=== PATIENT | male | born 1980 | race Caucasian/White ===

== ENCOUNTER 2017-03-13 05:28 | Inpatient (IN) | payer BC, OTHER ==
[2017-02-14 11:34] VITALS: BMI 37.0
--- NOTE | 2017-02-14 12:04 | PAT Medication Instructions ---
Service Date Feb 14, 2017. Current Home Medication List Albuterol Hfa (Ventolin Hfa), 2 PUFFS INH QID PRN for Shortness of Breath Albuterol Sulf (Proventil 0.083% 2.5MG/3ML), 2.5 MG INH QID PRN for Shortness of Breath Atorvastatin (Lipitor), 1 TAB PO QAM Beclomethasone Dip (Qvar), 2 PUFFS INH BID PRN for SOB/Wheezing Budesonide/Formoterol Fumarate (Symbicort 160/4.5 Inhaler ), 2 PUFFS INH BID PRN for Shortness of Breath Cetirizine (Zyrtec), 10 MG PO QAM Citalopram (Citalopram Hydrobromide), 20 MG PO QAM Duloxetine HCl (Cymbalta), 1 CAP PO QAM Levothyroxine Sodium (Levothyroxine Sodium), 1 TAB PO QAM Losartan Potassium (Cozaar), 25 MG PO QAM Metformin Hcl (Glucophage), 1,000 MG PO BID Omeprazole (Prilosec), 20 MG PO QAM Medication Instructions For Your Scheduled Surgery - Hold the following medications 48 hours prior to surgery: Metformin Hcl (Glucophage), 1,000 MG PO BID - Hold the following medications the morning of surgery: Losartan Potassium (Cozaar), 25 MG PO QAM Cetirizine (Zyrtec), 10 MG PO QAM - Take the following medications the morning of surgery with a sip of water: Omeprazole (Prilosec), 20 MG PO QAM Duloxetine HCl (Cymbalta), 1 CAP PO QAM Atorvastatin (Lipitor), 1 TAB PO QAM Levothyroxine Sodium (Levothyroxine Sodium), 1 TAB PO QAM Citalopram (Citalopram Hydrobromide), 20 MG PO QAM Budesonide/Formoterol Fumarate (Symbicort 160/4.5 Inhaler ), 2 PUFFS INH BID PRN for Shortness of Breath Beclomethasone Dip (Qvar), 2 PUFFS INH BID PRN for SOB/Wheezing Albuterol Sulf (Proventil 0.083% 2.5MG/3ML), 2.5 MG INH QID PRN for Shortness of Breath (if needed) Albuterol Hfa (Ventolin Hfa), 2 PUFFS INH QID PRN for Shortness of Breath ( can use if needed/ bring with you to hospital on day of surgery) - Take the following medications as scheduled the night before surgery: Budesonide/Formoterol Fumarate (Symbicort 160/4.5 Inhaler ), 2 PUFFS INH BID PRN for Shortness of Breath Beclomethasone Dip (Qvar), 2 PUFFS INH BID PRN for SOB/Wheezing Albuterol Sulf (Proventil 0.083% 2.5MG/3ML), 2.5 MG INH QID PRN for Shortness of Breath Albuterol Hfa (Ventolin Hfa), 2 PUFFS INH QID PRN for Shortness of Breath If you have any questions please call us at [phone] or [phone] ( [facility]) or [phone]
[2017-02-14 12:34] LABS: BASO % 0.4 %; BASO ABS # 0.03 K/uL (0-0.2); COMPLETE YES; EOS % 8.3 %; HEMATOCRIT 42.1 % (42-52); IG% 0.3 %; LYMPH % 36.4 %; LYMPH ABS # 2.89 K/uL (1.2-3.4); MEAN CELL VOLUME 91.7 fL (80-100); MEAN CORPUSCULAR HEMOGLOBIN 31.4 pg (25-34); MEAN CORPUSCULAR HGB CONC 34.2 g/dl (32-36); MEAN PLATELET VOLUME 9.2 fL (7.4-10.4); MONO % 10.7 %; NEUT % 43.9 %; PLATELET COUNT 274 K/uL (130-400); RED BLOOD COUNT 4.59 M/uL (4.7-6.1); WHITE BLOOD COUNT 7.95 K/uL (4.8-10.8)
[2017-02-14 13:42] LABS: BUN/CREATININE RATIO 10.6 (10-20); CALCIUM 9.1 mg/dl (8.5-10.1); CREATININE 0.9 mg/dl (0.60-1.40); POTASSIUM 3.9 mmol/L (3.5-5.1)
[2017-02-14 13:56] LABS: BETA-HYDROXYBUTYRATE 1.06 mg/dL (0.2-2.81)
--- NOTE | 2017-03-12 17:46 | HISTORY & PHYSICAL EXAMINATION ---
DATE OF ADMISSION: 03/13/2017 CHIEF COMPLAINT: Back pain, buttock pain, lower extremity difficulty, pain with flexion and extension and pain with doing normal everyday activities. HISTORY OF PRESENT ILLNESS: Romero is a delightful gentleman. He has ongoing difficulty for multiple months in duration and worsening over time, failure of conservative measures. He is here for a posterior lumbar interbody fusion at L5-S1. PAST MEDICAL HISTORY: Positive for the low back pain, sciatica, obesity, acid reflux, asthma, sleep apnea, diabetes mellitus. No hypertension, COPD, or carcinoma. SOCIAL HISTORY: Nonsmoker, non-ET[employer] user. PAST SURGICAL HISTORY: Negative. ALLERGIES: Negative. MEDICATIONS: Metformin, Zyrtec, Cymbalta, levothyroxine, Prilosec, fish oil and Celexa. REVIEW OF SYSTEMS: Denies blurred vision, double vision, tinnitus or vertigo. Denies chest pain, orthopnea, shortness of breath, palpitations, nausea, vomiting, urgency, frequency, and dysuria. All negative. Major complaint is of musculoskeletal back and lower extremity difficulty, and sciatica. OBJECTIVE: GENERAL: He is 5 feet 7 inches, 240 pounds, in distress. VITAL SIGNS: Blood pressure 140/80, pulse of 80, respiratory rate 16, temperature 97.4. HEENT: Pupils react to light and accommodation. Ear, nose and throat clear. CARDIAC: Normal S1, S2, no S3. LUNGS: Clear to auscultation. ABDOMEN: Soft, nontender, no masses. NEUROLOGIC: Intact, 5/5 strength, good sensation. He does have pain with straight leg raising on the right. He has pain with flexion, extension, pain with side bending as well. Difficulty with slight gait abnormality and difficulty coming to an upright position. IMAGES: Demonstrate degenerative changes and disk herniations at L5-S1. ASSESSMENT: L5-S1 degenerative issue along with a herniation. DISPOSITION: Includes a posterior lumbar interbody fusion at [facility] on March 13. [facility]
[~2017-03-13] VITALS: Ht 172.7 cm; Wt 110.7 kg
[2017-03-13] VITALS (9 sets, daily range): BP systolic 92–144; BP diastolic 51–80; PULSE 71–97; TEMP 36.5–37.3; O2SAT 92–98; BMI 37.0; BMI 37.1
[~2017-03-13 05:28] MED LIST: ALBINS/ INH; ATOR-22 PO; CEFAZOLIN 2000 MG/60 ML D5W 60 ML IV SCH; CETI10TA84 PO; CLX/20 PO; CYM/30 PO; LACTATED RINGER'S 1000ML IV SCH; LEVO50TA6 PO; LOSA1TAB PO; METF-384 PO; NSS 1000ML IV SCH; PRLSR20 PO; QVRINH80 INH; SYMIN160 INH; VNTHFA/IN INH
[2017-03-13] MEDS ORDERED: LACTATED RINGER'S 1000ML 1,000 ML IV SCH (06:00)
[2017-03-13] MEDS ORDERED: NSS 1000ML IV SCH (06:00)
[2017-03-13] MEDS ORDERED: CEFAZOLIN 2000 MG/60 ML D5W 60 ML IV SCH (06:00)
[2017-03-13] MEDS ORDERED: MIDAZOLAM HCL 1 MG/ML 2ML VIAL ONE (06:40)
[2017-03-13] MEDS ORDERED: FENTANYL CITRATE INJ 50 MCG/1 ML 2 ML VIAL ONE (06:40)
[2017-03-13] MEDS ORDERED: GELATIN SPONGE SZ 100 ONE (07:04)
[2017-03-13] MEDS ORDERED: BUPIVACAINE/EPINEPHRINE 0.5% MPF 1:200,000 30 ML VIAL ONE (07:04)
[2017-03-13] MEDS ORDERED: THROMBIN FOR SOLN 20000 UNIT KIT ONE (07:04)
[2017-03-13] MEDS ORDERED: BACITRACIN 50000 UNIT VIAL ONE (07:05)
[2017-03-13] MEDS ORDERED: VANCOMYCIN HCL 1000MG/20ML VIAL ONE (07:05)
--- NOTE | 2017-03-13 07:12 | History & Physical Bridge Note ---
H&P Re-Evaluation Bridge Note: I have examined the patient, reviewed the History & Physical and in the interval since the performance of the History & Physical I have noted the following changes of clinical significance: No changes noted
[2017-03-13] MEDS ORDERED: ONDANSETRON INJ 2 MG/ML 2 ML VIAL IV PRN ×2 (07:15→10:30)
[2017-03-13] MEDS ORDERED: EpHEDrine SULFATE INJ 50 MG/ML AMP IV PRN (07:15)
[2017-03-13] MEDS ORDERED: ATROPINE SULFATE 0.1 MG/ML 5ML SYR IV PRN (07:15)
[2017-03-13] MEDS ORDERED: HYDROmorphone INJ 2 MG/ML SYR/VIAL ONE ×2 (07:49→08:20)
[2017-03-13] MEDS ORDERED: DEXAMETHASONE SOD INJ 4 MG/ML VIAL ONE (08:52)
[2017-03-13] MEDS ORDERED: PROPOFOL IV EMULSION 10 MG/ML 20 ML VIAL IV ONE (08:53)
[2017-03-13] MEDS ORDERED: LIDOCAINE HCL 2% 2 ML VIAL (20MG/ML) ONE (08:53)
[2017-03-13] MEDS ORDERED: ROCURONIUM BROMIDE 10 MG/ML 5 ML VIAL ONE ×4 (09:11→09:12)
--- NOTE | 2017-03-13 09:55 | DIAGNOSTIC IMAGING REPORT ---
LUMBAR SPINE, INTRAOPERATIVE FLUOROSCOPY HISTORY: L5-S1 decompression and fusion. FLUOROSCOPY TIME: 8 seconds. FINDINGS: Intraoperative fluoroscopy was provided for the lumbar spine. A single fluoroscopic spot image demonstrates posterior decompression and fusion at L5-S1 with pedicle screws and rods. IMPRESSION: Fluoroscopy provided for a L5-S1 posterior decompression and fusion. Electronically signed by: Ayad Rodriguez M.D. 03/13/2017 9:54 AM Dictated Date/Time: 03/13/2017 9:54 AM
[2017-03-13] MEDS ORDERED: NEOSTIGMINE METHYLSULFATE 5 MG/5 ML SYR ONE (09:57)
[2017-03-13] MEDS ORDERED: GLYCOPYRROLATE INJ 0.2 MG/ML VIAL ONE (09:57)
[2017-03-13] MEDS ORDERED: ONDANSETRON INJ 2 MG/ML 2 ML VIAL ONE (09:57)
[2017-03-13] MEDS ORDERED: SODIUM CHLORIDE 0.9% 1000ML 1,000 ML IV SCH (10:21)
--- NOTE | 2017-03-13 10:23 | [facility] Post Operative Brief Note ---
Immediate Operative Summary Operative Date March 13, 2017. Pre-Operative Diagnosis L5-S1 Disc Herniation; Instability L5-1 Post-Operative Diagnosis L5-S1 Disc Herniation Procedure(s) Performed L5-S1 Posterior Lumbar Interbody Fusion Surgeon Dr. Mays Heel Emery Buffer Surgeon(s) MADISON Snider Estimated Blood Loss 200 cc Findings instability L5-S1 Specimens none per surgeon Complication(s) None Disposition Recovery Room / PACU
[2017-03-13] MEDS ORDERED: LORAZEPAM 1 MG TAB PO PRN (10:30)
[2017-03-13] MEDS ORDERED: METOCLOPRAMIDE HCL INJ 5 MG/ML 2 ML VIAL IV PRN (10:30)
[2017-03-13] MEDS ORDERED: ALBUTEROL 0.083% NEBU SOLN 3 ML VIAL INH PRN (10:30)
[2017-03-13] MEDS ORDERED: BECLOMETHASONE DIP HFA 80 MCG 8.7G INH INH PRN (10:30)
[2017-03-13] MEDS ORDERED: ACETAMINOPHEN 325 MG TAB PO PRN (10:30)
[2017-03-13] MEDS ORDERED: NALOXONE HCL 0.4 MG/1 ML VIAL/CARP IV PRN (10:30)
[2017-03-13] MEDS ORDERED: MAGNESIUM HYDROXIDE SUSP 30 ML UDC PO PRN (10:30)
[2017-03-13] MEDS ORDERED: LORAZEPAM INJ 1 MG in SYRINGE 0 ML IV PRN (10:30)
[2017-03-13] MEDS ORDERED: BUDESONIDE/FORMOTEROL FUMARATE 160/4.5 60 PUFFS/INHALER INH PRN (10:30)
[2017-03-13] MEDS ORDERED: ALBUTEROL HFA 8 GM INHALER INH PRN (10:30)
[2017-03-13] MEDS ORDERED: PROMETHAZINE HCL INJ 12.5 MG in SODIUM CHLORIDE 0.9% 50ML 50 ML IV PRN (10:30)
[2017-03-13] MEDS ORDERED: HYDROmorphone HCL 0.5MG/ML 50 ML CASSETTE ONE (10:42)
[2017-03-13] MEDS: FENTANYL CITRATE INJ 50 MCG/1 ML 2 ML VIAL IV PRN ×4 (10:50→11:10)
[2017-03-13] MEDS: MoRPHine SULFATE 10 MG/ML CARP/VIAL IV PRN ×4 (11:15→11:30)
--- NOTE | 2017-03-13 11:46 | OPERATIVE REPORT ---
DATE OF OPERATION: 03/13/2017 PREOPERATIVE DIAGNOSES: Instability and herniation, L5-S1. POSTOPERATIVE DIAGNOSES: Same. PROCEDURE: Include a posterior lumbar interbody fusion and diskectomy L5-S1. SURGEON: Dr. Mays. HEALTH ECONOMIST: Giuliano Velásquez. COMPLICATIONS: Zero. BLOOD LOSS: 150-200 mL. DESCRIPTION OF PROCEDURE: The patient was taken to the operating room, a general intubated anesthetic provided to the patient, placed prone, prepped and draped sterile. He was shaved first, scrubbed with DuraPrep and prepped with ChloraPrep. We draped him sterile and he was comfortably placed. I made a skin incision, fascial incision. He was an obese individual, was 4-5 inches just to the facet joints. We dissected this free. We meticulously dissected the lamina L5, foraminotomies, and partial facetectomies bilaterally. I safely was able to get pedicle screws on L5 and S1 bilaterally. We safely got a posterior lumbar interbody device by the [employer], it measured 26 mm in length, 9 mm in height and 10 mm across. The screws were all 6.5 mm x 40 mm by the [employer]. We were very pleased with the anatomical adventism. We irrigated thoroughly. We bone grafted out over this transverse processes to complete the 360 fusion. We closed over a drain with 1 Vicryl, 2-0 and staple gun. Sterile dressings applied. The patient returned to PACU stable. No apparent complications. I attest to the content of the Intraoperative Record and any orders documented therein. Any exceptio ns are noted below.
[2017-03-13 11:47] LABS: HEMATOCRIT 41.2 % (42-52)
[2017-03-13] MEDS ORDERED: EpHEDrine SULFATE 50MG/5ML SYR ONE (11:57)
[2017-03-13] MEDS: HYDROmorphone HCL 0.5MG/ML 50 ML CASSETTE IV PRN ×4 (12:03→23:09)
--- NOTE | 2017-03-13 12:17 | Anesthesiology Progress Note ---
Anesthesia Post Op Note Date & Time March 13, 2017 at 12:17 Vital Signs Pain Intensity: 5 Vital Signs Past 12 Hours Date Time Temp Pulse Resp B/P Pulse Ox O2 Delivery O2 Flow Rate FiO2 03/13/17 11:52 91 9 03/13/17 11:52 91 9 92 03/13/17 11:51 144/75 03/13/17 11:47 98 20 94 03/13/17 11:47 95 20 03/13/17 11:46 126/73 03/13/17 11:45 37.0 97 18 144/75 95 Nasal Cannula 4 03/13/17 11:42 97 7 95 03/13/17 11:42 97 7 03/13/17 11:41 137/67 03/13/17 11:37 89 7 86 03/13/17 11:37 85 7 03/13/17 11:36 121/89 03/13/17 11:35 97 12 03/13/17 11:35 98 12 95 03/13/17 11:31 127/64 03/13/17 11:30 96 11 03/13/17 11:30 96 11 95 03/13/17 11:26 150/83 03/13/17 11:25 92 10 92 03/13/17 11:25 91 10 03/13/17 11:21 119/77 03/13/17 11:20 100 17 03/13/17 11:20 99 17 94 03/13/17 11:16 123/75 03/13/17 11:15 98 32 03/13/17 11:15 97 32 93 03/13/17 11:11 102/66 03/13/17 11:10 99 12 03/13/17 11:10 98 12 95 03/13/17 11:05 97 13 138/92 94 03/13/17 11:05 98 13 03/13/17 11:01 130/70 03/13/17 11:00 89 15 94 03/13/17 11:00 89 15 03/13/17 10:55 82 16 03/13/17 10:55 83 16 140/78 97 03/13/17 10:51 121/89 03/13/17 10:50 88 11 98 03/13/17 10:50 88 11 03/13/17 10:46 142/53 03/13/17 10:45 89 12 03/13/17 10:45 89 12 98 03/13/17 10:41 146/85 03/13/17 10:40 81 15 98 03/13/17 10:40 82 15 03/13/17 10:36 153/86 03/13/17 10:35 78 12 03/13/17 10:35 78 12 97 03/13/17 10:31 154/87 03/13/17 10:30 81 14 97 03/13/17 10:30 81 14 03/13/17 10:26 143/87 03/13/17 10:25 86 18 98 03/13/17 10:25 36.6 81 14 143/87 97 Mask 10 03/13/17 10:25 86 18 03/13/17 05:42 36.7 71 18 130/78 96 Room Air Notes Mental Status: alert / awake / arousable, participated in evaluation Pt Amnestic to Procedure: Yes Nausea / Vomiting: adequately controlled Pain: adequately controlled Airway Patency, RR, SpO2: stable & adequate BP & HR: stable & adequate Hydration State: stable & adequate Anesthetic Complications: no major complications apparent
[2017-03-13] MEDS: SODIUM CHLORIDE 0.9% 1000ML 1,000 ML IV SCH ×2 (13:16→22:34)
[2017-03-13] MEDS: CEFAZOLIN IV 2,000 MG in DEXTROSE 5% 50ML 50 ML IV SCH ×2 (15:51→23:52)
[2017-03-13] MEDS: DEXAMETHASONE INJ 10 MG in SYRINGE 0 ML IV SCH ×2 (16:04→23:52)
[2017-03-13] MEDS ORDERED: NURSING VERBAL MED ORDER ONE (16:30)
[2017-03-13] MEDS: KETOROLAC TROMETHAMINE 30 MG/ML VIAL IV. SCH ×2 (17:44→23:52)
[2017-03-13] MEDS ORDERED: METFORMIN HCL 500 MG TAB PO SCH (17:45)
[2017-03-13] MEDS ORDERED: DEXTROSE 50% 50 ML SYR IV PRN (18:45)
[2017-03-13] MEDS ORDERED: GLUCAGON FOR INJ 1 MG VIAL SQ PRN (18:45)
[2017-03-13] MEDS ORDERED: GLUCOSE 10 TABS/TUBE PO PRN (18:45)
[2017-03-13] MEDS ORDERED: GLUCOSE 40% GEL 15 GM TUBE PO PRN (18:45)
--- NOTE | 2017-03-13 19:31 | Medical Consult ---
Consultation Date of Consultation: March 13, 2017. Attending Physician: Ambrose Mays DO Reason for Consultation: medical management History of Present Illness Patient seen and examined after undergoing lumbar fusion today by Dr. Mays. Patient states back pain is 6/10. He did receive pain medication which helped. He tolerated dinner. Has voided after surgery without issues. Last BM was 3 days ago. Denies fever, chills, dizziness, cough, SOB, chest pain, N/V/D, dysuria, calf pain, edema, numbness, weakness. Denies hx of VTE. States blood sugars run 180 at home on metformin 1000 mg BID. Past Medical/Surgical History Medical Problems: (1) Asthma Status: Chronic (2) Depression Status: Chronic (3) DM type 2 (diabetes mellitus, type 2) Status: Chronic (4) GERD (gastroesophageal reflux disease) Status: Chronic (5) Hepatitis C, chronic Status: Chronic (6) Hyperlipidemia Status: Chronic (7) Hypothyroidism Status: Chronic Surgical Problems: (1) H/O wisdom tooth extraction Status: Chronic (2) S/P tympanostomy tube placement Status: Chronic Family History Diabetes mellitus MOTHER Social History Smoking Status: Never Smoker Alcohol Use: occasionally Marital Status: Housing Status: lives with family Allergies Coded Allergies: No Known Allergies (Unverified , 03/13/17) Home Medications Active Reported Glucophage (Metformin Hcl) 1,000 Mg Tab 1,000 Mg PO BID Cozaar (Losartan Potassium) 25 Mg Tab 25 Mg PO QAM Zyrtec (Cetirizine HCl) 10 Mg Tab 10 Mg PO QAM Proventil 0.083% 2.5MG/3ML (Albuterol Sulf) 2.5 Mg/3 Ml Nebu 2.5 Mg INH QID PRN Ventolin Hfa (Albuterol) 200 Puffs/59609 Mcg Aers 2 Puffs INH QID PRN Qvar (Beclomethasone Dip) 80 Mcg/Act Aer 2 Puffs INH BID PRN Symbicort 160/4.5 Inhaler (Budesonide/Formoterol Fumarate) Aero 2 Puffs INH BID PRN Cymbalta (Duloxetine HCl) 30 Mg Cap 1 Cap PO QAM 30 Days Levothyroxine Sodium 50 Mcg Tab 1 Tab PO QAM 30 Days Lipitor (Atorvastatin Calcium) 20 Mg Tab 1 Tab PO QAM 30 Days Prilosec (Omeprazole) 20 Mg Capcr 20 Mg PO QAM Citalopram Hydrobromide (Citalopram) 20 Mg Tab 20 Mg PO QAM Current Inpatient Medications Current Inpatient Medications Medications (Trade) Dose Ordered Sig/Calrke Route Start Time Stop Time Status Last Admin Dose Admin Sodium Chloride (Nss 1000ml) 1,000 ml @ 15 mls/hr Q24H IV 03/13/17 06:00 03/14/17 05:59 Diphenhydramine HCl (Benadryl Cap) 25 mg Q6H PRN PO 03/13/17 10:30 04/12/17 10:29 Magnesium Hydroxide (Milk Of Magnesia Susp) 30 ml DAILY PRN PO 03/13/17 10:30 04/12/17 10:29 Bisacodyl (Dulcolax Supp) 10 mg DAILY PRN LA 03/14/17 06:00 04/13/17 05:59 Bisacodyl (Dulcolax Tab) 5 mg DAILY PRN PO 03/14/17 06:00 04/13/17 05:59 Polyethylene 17 gm 17 gm DAILY PO 03/14/17 09:00 04/13/17 08:59 Lorazepam/Syringe (Ativan Inj/ Syringe) 0.5 ml @ 1 mls/min Q6H PRN IV 03/13/17 10:30 04/12/17 10:29 Lorazepam (Ativan Tab) 1 mg Q6H PRN PO 03/13/17 10:30 04/12/17 10:29 Metoclopramide HCl (Reglan Inj) 10 mg Q6H PRN IV 03/13/17 10:30 04/12/17 10:29 Ondansetron HCl 4 mg 4 mg Q6H PRN IV 03/13/17 10:30 04/12/17 10:29 Promethazine HCl/ Sodium Chloride (Phenergan Inj/ Nss 50ml) 50.5 ml @ 202 mls/hr Q6H PRN IV 03/13/17 10:30 04/12/17 10:29 Ketorolac Tromethamine (Toradol Inj) 30 mg Q6 IV. 03/13/17 18:00 03/14/17 18:01 03/13/17 17:44 30 MG Oxycodone/ Acetaminophen (Percocet 5-325mg Tab) 2 tab Q4H PRN PO 03/14/17 08:00 03/28/17 07:59 Hydromorphone HCl (Dilaudid Inj) 1 mg Q3H PRN IV 03/14/17 08:00 03/28/17 07:59 Oxycodone/ Acetaminophen (Percocet 5-325mg Tab) 1 tab Q4H PRN PO 03/14/17 08:00 03/28/17 07:59 Acetaminophen 650 mg 650 mg Q6H PRN PO 03/13/17 10:30 04/12/17 10:29 Cefazolin Sodium 2000 mg/Dextrose 60 ml @ 100 mls/hr Q8H IV 03/13/17 16:00 03/14/17 08:35 03/13/17 15:51 100 MLS/HR Dexamethasone Sodium Phosphate 10 mg/Syringe 2.5 ml @ 1 mls/min Q8H IV 03/13/17 16:00 03/15/17 00:03 03/13/17 16:04 1 MLS/MIN Sodium Chloride (Nss 1000ml) 1,000 ml @ 80 mls/hr [id number] IV 03/13/17 10:21 04/12/17 10:20 03/13/17 13:16 80 MLS/HR Albuterol (Ventolin Hfa Inhaler) 2 puffs QID PRN INH 03/13/17 10:30 04/12/17 10:29 Albuterol Sulfate (Ventolin 0.083% 2.5MG/3ML Neb) 2.5 mg QID PRN INH 03/13/17 10:30 04/12/17 10:29 Atorvastatin Calcium (Lipitor Tab) 20 mg QAM PO 03/14/17 09:00 04/13/17 08:59 Beclomethasone Dipropionate (Qvar 80 Mcg Hfa Inhaler) 2 puffs BID PRN INH 03/13/17 10:30 04/12/17 10:29 Budesonide/ Formoterol Fumarate (Symbicort 160/ 4.5 Inh) 2 puffs BID PRN INH 03/13/17 10:30 04/12/17 10:29 Cetirizine HCl (zyrTEC TAB) 10 mg QAM PO 03/14/17 09:00 04/13/17 08:59 Citalopram Hydrobromide (celeXA TAB) 20 mg QAM PO 03/14/17 09:00 04/13/17 08:59 Duloxetine HCl (Cymbalta Cap) 30 mg QAM PO 03/14/17 09:00 04/13/17 08:59 Levothyroxine Sodium (Synthroid Tab) 50 mcg DAILYBB PO 03/14/17 06:00 04/13/17 05:59 Losartan Potassium (coZAAR TAB) 25 mg QAM PO 03/14/17 09:00 04/13/17 08:59 Pantoprazole Sodium (Protonix Tab) 40 mg QAM PO 03/14/17 09:00 04/13/17 08:59 Naloxone HCl (Narcan Inj) 0.1 mg Q5M PRN IV 03/13/17 10:30 03/14/17 08:00 Hydromorphone HCl 25 mg 25 mg PRN PRN IV 03/13/17 10:30 03/14/17 08:00 03/13/17 16:36 25 MG Sodium Chloride (Nss 1000ml) 1,000 ml @ 15 mls/hr Q24H IV 03/13/17 10:21 03/14/17 08:00 Miscellaneous Information (Discontinue COMMERCIAL OR INSTITUTIONAL CLEANER) 1 ea TODAY@0800 N/A 03/14/17 08:00 03/14/17 10:00 Hydromorphone HCl (Dilaudid Inj) 1.5 mg Q3H PRN IV 03/14/17 08:00 03/28/17 07:59 Insulin Aspart (novoLOG ASPART) SLIDING SCALE If C... ACHS SC 03/13/17 21:00 04/12/17 20:59 Glucose (Glucose 40% Gel) 15-30 GRAMS 15 GRAMS... UD PRN PO 03/13/17 18:45 04/12/17 18:44 Glucose (Glucose Chew Tab) 4-8 Tablets 4 Tabl... UD PRN PO 03/13/17 18:45 04/12/17 18:44 Dextrose (Dextrose 50% 50ML Syringe) 25-50ML OF 50% DW IV FOR... UD PRN IV 03/13/17 18:45 04/12/17 18:44 Glucagon (Glucagon Inj) 1 mg UD PRN SQ 03/13/17 18:45 04/12/17 18:44 Review of Systems Ten systems reviewed and negative except as noted in HPI. Physical Exam Date Time Temp Pulse Resp B/P Pulse Ox O2 Delivery O2 Flow Rate FiO2 03/13/17 15:30 95 Nasal Cannula 2.0 03/13/17 15:05 36.9 85 16 139/75 98 Nasal Cannula 4.0 03/13/17 14:05 36.5 97 20 126/80 97 Nasal Cannula 4.0 03/13/17 13:03 96 20 131/71 98 Nasal Cannula 4.0 03/13/17 12:38 97 Nasal Cannula 4.0 03/13/17 12:35 37.3 92 18 144/79 97 Nasal Cannula 4.0 03/13/17 12:35 78 20 129/69 95 Nasal Cannula 4.0 03/13/17 12:33 97 Nasal Cannula 4.0 03/13/17 11:52 91 9 03/13/17 11:52 91 9 92 03/13/17 11:51 144/75 03/13/17 11:47 98 20 94 03/13/17 11:47 95 20 03/13/17 11:46 126/73 03/13/17 11:45 37.0 97 18 144/75 95 Nasal Cannula 4 03/13/17 11:42 97 7 95 03/13/17 11:42 97 7 03/13/17 11:41 137/67 03/13/17 11:37 89 7 86 03/13/17 11:37 85 7 03/13/17 11:36 121/89 03/13/17 11:35 97 12 03/13/17 11:35 98 12 95 03/13/17 11:31 127/64 03/13/17 11:30 96 11 03/13/17 11:30 96 11 95 03/13/17 11:26 150/83 03/13/17 11:25 92 10 92 03/13/17 11:25 91 10 03/13/17 11:21 119/77 03/13/17 11:20 100 17 03/13/17 11:20 99 17 94 03/13/17 11:16 123/75 03/13/17 11:15 98 32 03/13/17 11:15 97 32 93 03/13/17 11:11 102/66 03/13/17 11:10 99 12 03/13/17 11:10 98 12 95 03/13/17 11:05 97 13 138/92 94 03/13/17 11:05 98 13 03/13/17 11:01 130/70 03/13/17 11:00 89 15 94 03/13/17 11:00 89 15 03/13/17 10:55 82 16 03/13/17 10:55 83 16 140/78 97 03/13/17 10:51 121/89 03/13/17 10:50 88 11 98 03/13/17 10:50 88 11 03/13/17 10:46 142/53 03/13/17 10:45 89 12 03/13/17 10:45 89 12 98 03/13/17 10:41 146/85 03/13/17 10:40 81 15 98 03/13/17 10:40 82 15 03/13/17 10:36 153/86 03/13/17 10:35 78 12 03/13/17 10:35 78 12 97 03/13/17 10:31 154/87 03/13/17 10:30 81 14 97 03/13/17 10:30 81 14 03/13/17 10:26 143/87 03/13/17 10:25 86 18 98 03/13/17 10:25 36.6 81 14 143/87 97 Mask 10 03/13/17 10:25 86 18 03/13/17 05:42 36.7 71 18 130/78 96 Room Air General Appearance: WD/WN, no apparent distress Head: normocephalic, atraumatic Eyes: normal inspection, sclerae normal ENT: hearing grossly normal Neck: supple, trachea midline Respiratory/Chest: lungs clear, normal breath sounds Cardiovascular: regular rate, rhythm, no murmur Abdomen/GI: normal bowel sounds, non tender, soft Back: + pertinent finding (s/p lumbar fusion. drain in place with sanguinous drainage. ) Extremities/Musculoskelatal: no calf tenderness, no pedal edema, + pertinent finding (SCDs in place) Neurologic/Psych: alert, normal mood/affect, oriented x 3, + pertinent finding (ankle flexion/ extension 5/5 bilaterally. sensation to light touch intact bilateral feet. ) Skin: normal color, warm/dry Laboratory Results Last 24 Hours Test 03/13/17 05:49 03/13/17 10:31 03/13/17 11:21 03/13/17 12:06 Bedside Glucose 285 mg/dl 241 mg/dl 247 mg/dl Hemoglobin 14.1 g/dL Hematocrit 41.2 % Test 03/13/17 18:32 Bedside Glucose 214 mg/dl Assessment & Plan S/P LUMBAR SPINAL FUSION POD #[address] Mays Pain control, activity, and wound care as per ortho Current bowel regimen includes Miralax daily- will add Colace BID Monitor daily H/H for sign of acute blood loss anemia Continue incentive spirometry PT/OT DM TYPE 2 BSG's in 200s Hold metformin during hospitalization Insulin sliding scale coverage Monitor for rising BSG while on IV steroids ASTHMA Not in exacerbation Continue home inhalers HYPOTHYROIDISM Continue levothyroxine DYSLIPIDEMIA Continue statin DEPRESSION Continue home medications GERD Continue PPI DVT PROPHYLAXIS Per ortho DISPOSITION Per ortho Patient seen in collaboration with Dr. Encinas. Please see her addendum. I have seen and evaluated the patient and discussed the case with the provider above. I agree with the assessment and plan as stated. Huang, DO
[2017-03-13] MEDS: INSULIN ASPART 100 UNITS/ML 3 ML PEN SC SCH (20:42)
[2017-03-13] MEDS: DOCUSATE SODIUM 100 MG CAP PO SCH (21:05)
[2017-03-14 03:27] VITALS: BP 106/66; PULSE 78; TEMP 36.6; O2SAT 91
[2017-03-14] MEDS: LEVOTHYROXINE 50 MCG TAB PO SCH (05:42)
[2017-03-14] MEDS: KETOROLAC TROMETHAMINE 30 MG/ML VIAL IV. SCH ×3 (05:42→18:07)
[2017-03-14] MEDS ORDERED: BISACODYL 10 MG SUPP PR PRN (06:00)
[2017-03-14] MEDS ORDERED: DC PCA SCH ×2 (06:00→08:00)
[2017-03-14] MEDS ORDERED: BISACODYL 5 MG TABEC PO PRN (06:00)
[2017-03-14 06:44] LABS: BASO % 0.1 %; BASO ABS # 0.01 K/uL (0-0.2); COMPLETE YES; HEMATOCRIT 35.6 % (42-52); IG% 0.2 %; LYMPH % 9.6 %; LYMPH ABS # 1.59 K/uL (1.2-3.4); MEAN CORPUSCULAR HEMOGLOBIN 31.5 pg (25-34); MEAN CORPUSCULAR HGB CONC 34.3 g/dl (32-36); MEAN PLATELET VOLUME 9.2 fL (7.4-10.4); NEUT % 83.1 %; PLATELET COUNT 233 K/uL (130-400); RED BLOOD COUNT 3.87 M/uL (4.7-6.1)
[2017-03-14] MEDS: HYDROmorphone HCL 0.5MG/ML 50 ML CASSETTE IV PRN (07:04)
[2017-03-14 07:17] LABS: BUN/CREATININE RATIO 17.8 (10-20); CALCIUM 8.3 mg/dl (8.5-10.1); CREATININE 0.97 mg/dl (0.60-1.40); POTASSIUM 4.3 mmol/L (3.5-5.1)
[2017-03-14 07:19] VITALS: BP 123/79; PULSE 78; TEMP 36.5; O2SAT 94
[2017-03-14] MEDS ORDERED: HYDROmorphone INJ 1 MG/ML SYR IV PRN ×2 (08:00)
[2017-03-14] MEDS ORDERED: OXYCODONE/ACETAMINOPHEN 5-325 TAB PO PRN (08:00)
[2017-03-14] MEDS ORDERED: HYDROmorphone INJ 2 MG/ML SYR/VIAL IV PRN (08:00)
[2017-03-14] MEDS: DEXAMETHASONE INJ 10 MG in SYRINGE 0 ML IV SCH ×3 (08:16→23:47)
[2017-03-14] MEDS: PANTOprazole SOD 40 MG TAB PO SCH (08:17)
[2017-03-14] MEDS: CEFAZOLIN IV 2,000 MG in DEXTROSE 5% 50ML 50 ML IV SCH (08:17)
[2017-03-14] MEDS: CITALOPRAM 20 MG TAB PO SCH (08:17)
[2017-03-14] MEDS: DOCUSATE SODIUM 100 MG CAP PO SCH ×2 (08:17→20:51)
[2017-03-14] MEDS: CETIRIZINE HCL 10 MG TAB PO SCH (08:17)
[2017-03-14] MEDS: LOSARTAN POTASSIUM 25 MG TAB PO SCH (08:18)
[2017-03-14] MEDS: ATORVASTATIN 20 MG TAB PO SCH (08:18)
[2017-03-14] MEDS: DULOXETINE (CYMBALTA) 30 MG CAP PO SCH (08:18)
[2017-03-14] MEDS: POLYETHYLENE (MIRALAX) 17 GM PACK PO SCH (08:19)
[2017-03-14] MEDS: INSULIN ASPART 100 UNITS/ML 3 ML PEN SC SCH ×4 (09:39→20:55)
--- NOTE | 2017-03-14 10:16 | ORTHOPEDICS PROGRESS NOTE ---
DATE OF ADMISSION: 03/14/2017 SUBJECTIVE: He is improving better motion, decreased pain. Denies chest pain, shortness of breath. No confusion, no mental issues, no nausea, vomiting. OBJECTIVE: VITAL SIGNS: Stable, 36.5 temperature, blood pressure controlled. LABORATORY DATA: 12.2 hemoglobin, 35.6 hematocrit, random glucose is 248, calcium 8.3. ASSESSMENT: Status post lumbar spinal fusion, decompression L5-S1 along with diabetes mellitus along with chronic pain. DISPOSITION: We will have him up and ambulatory here today. Hopefully, get him discharged tomorrow the th to home situation.
--- NOTE | 2017-03-14 10:51 | Anesthesiology Progress Note ---
Anesthesia Post Op Note Date & Time March 14, 2017 at 10:51 Vital Signs Pain Intensity: 2.0 Vital Signs Past 12 Hours Date Time Temp Pulse Resp B/P Pulse Ox O2 Delivery O2 Flow Rate FiO2 03/14/17 07:35 Room Air 03/14/17 07:19 36.5 78 19 123/79 94 Room Air 03/14/17 03:27 36.6 78 16 106/66 91 Room Air 03/13/17 23:50 116/70 03/13/17 23:50 Room Air 03/13/17 23:21 36.5 84 16 92/51 92 Room Air Notes Mental Status: alert / awake / arousable, participated in evaluation Pt Amnestic to Procedure: Yes Nausea / Vomiting: adequately controlled Pain: adequately controlled Airway Patency, RR, SpO2: stable & adequate BP & HR: stable & adequate Hydration State: stable & adequate Anesthetic Complications: no major complications apparent
[2017-03-14] MEDS: OXYCODONE/ACETAMINOPHEN 5-325 TAB PO PRN ×3 (11:08→21:40)
[2017-03-14] MEDS ORDERED: NURSING VERBAL MED ORDER ONE (11:15)
--- NOTE | 2017-03-14 14:42 | Progress Note ---
Internal Med Progress Note Date of Service: March 14, 2017. Provider Documentation: SUBJECTIVE: Patient does c/o pain - around 5-6/10 intensity at surgical site No chest pain, SOB, fever, chills, nausea, vomiting. OBJECTIVE: Vital Signs-as noted below Exam: General-AAOX3, no distress; Sitting in chair comfortably Neck-Supple Lungs-AEBE decreased, no wheezing Heart-S1, S2 normal, no murmurs Extremities-No edema Back- S/P Back surgery Lab data as noted below. ASSESSMENT & PLAN: S/P LUMBAR SPINAL FUSION POD # [address] Mays -Pain control, activity, wound care, PT/OT as per ortho -Bowel regimen while on pain medications -Hb monitoring- stable -Continue incentive spirometry DM TYPE 2 BSG's in 200s Hold metformin during hospitalization -Will add Insulin 4 units q HS as blood sugar in 200s. Insulin sliding scale coverage -Monitor for rising BSG while on IV steroids ASTHMA Not in exacerbation -Continue home inhalers HYPOTHYROIDISM -Continue levothyroxine DYSLIPIDEMIA -Continue statin DEPRESSION -Continue home medications GERD -Continue PPI DVT PROPHYLAXIS -Per ortho DISPOSITION -Per ortho Vital Signs: Date Time Temp Pulse Resp B/P Pulse Ox O2 Delivery O2 Flow Rate FiO2 03/14/17 07:35 Room Air 03/14/17 07:19 36.5 78 19 123/79 94 Room Air 03/14/17 03:27 36.6 78 16 106/66 91 Room Air 03/13/17 23:50 116/70 03/13/17 23:50 Room Air 03/13/17 23:21 36.5 84 16 92/51 92 Room Air 03/13/17 15:30 95 Nasal Cannula 2.0 03/13/17 15:05 36.9 85 16 139/75 98 Nasal Cannula 4.0 Lab Results: Results Past 24 Hours Test 03/13/17 18:32 03/13/17 20:39 03/14/17 06:25 03/14/17 08:05 Range/Units Bedside Glucose 214 263 260 70-99 mg/dl White Blood Count 16.60 4.8-10.8 K/uL Red Blood Count 3.87 4.7-6.1 M/uL Hemoglobin 12.2 14.0-18.0 g/dL Hematocrit 35.6 42-52 % Mean Corpuscular Volume 92.0 80-100 fL Mean Corpuscular Hemoglobin 31.5 25-34 pg Mean Corpuscular Hemoglobin Concent 34.3 32-36 g/dl Platelet Count 233 130-400 K/uL Mean Platelet Volume 9.2 7.4-10.4 fL Neutrophils (%) (Auto) 83.1 % Lymphocytes (%) (Auto) 9.6 % Monocytes (%) (Auto) 7.0 % Eosinophils (%) (Auto) 0.0 % Basophils (%) (Auto) 0.1 % Neutrophils # (Auto) 13.79 1.4-6.5 K/uL Lymphocytes # (Auto) 1.59 1.2-3.4 K/uL Monocytes # (Auto) 1.17 0.11-0.59 K/uL Eosinophils # (Auto) 0.00 0-0.5 K/uL Basophils # (Auto) 0.01 0-0.2 K/uL RDW Standard Deviation 44.0 36.4-46.3 fL RDW Coefficient of Variation 13.2 11.5-14.5 % Immature Granulocyte % (Auto) 0.2 % Immature Granulocyte # (Auto) 0.04 0.00-0.02 K/uL Sodium Level 138 136-145 mmol/L Potassium Level 4.3 3.5-5.1 mmol/L Chloride Level 102 98-107 mmol/L Carbon Dioxide Level 30 21-32 mmol/L Anion Gap 6.0 3-11 mmol/L Blood Urea Nitrogen 17 7-18 mg/dl Creatinine 0.97 0.60-1.40 mg/dl Est Creatinine Clear Calc Drug Dose 125.8 ml/min Estimated GFR () 115.1 Estimated GFR (Non- 99.3 BUN/Creatinine Ratio 17.8 10-20 Random Glucose 248 70-99 mg/dl Calcium Level 8.3 8.5-10.1 mg/dl Test 03/14/17 12:41 Range/Units Bedside Glucose 282 70-99 mg/dl
[2017-03-14 15:17] VITALS: BP 115/69; PULSE 79; TEMP 36.8; O2SAT 95
--- NOTE | 2017-03-14 15:58 | OPERATIVE REPORT ---
DATE OF OPERATION: 03/13/2017 ADDENDUM FROM YESTERDAY DATE OF SURGERY: 03/13/2017. administrative personal assistant help with physician camp assistant Giuliano Velásquez PA-C. Mr. Giuliano Velásquez was used throughout the entire procedure with positioning of the patient, prepping of the patient, engineer first assistant on neural decompression, engineer first assistant on pedicle screw instrumentation, anatomic landmarks. We also incorporated interbody fusion work and Didier was instrumental in the protection of neurovascular structures to make a successful operation. I attest to the content of the Intraoperative Record and any orders documented therein. Any exceptio ns are noted below.
[2017-03-14] MEDS ORDERED: SODIUM CHLORIDE 0.9% 1000ML 1,000 ML IV ONE (21:00)
[2017-03-14] MEDS ORDERED: INSULIN GLARGINE SOLOSTAR 100 UNITS/ML 3 ML PEN SC SCH (21:00)
[2017-03-14] MEDS ORDERED: INSULIN GLARGINE SOLOSTAR 100 UNITS/ML 3 ML PEN SC STA (21:35)
[2017-03-14 23:43] VITALS: BP 124/66; PULSE 87; TEMP 36.5; O2SAT 97
[2017-03-15] MEDS: LEVOTHYROXINE 50 MCG TAB PO SCH (05:41)
[2017-03-15] MEDS: OXYCODONE/ACETAMINOPHEN 5-325 TAB PO PRN ×2 (05:41→09:41)
[2017-03-15 06:10] VITALS: BP 123/68; PULSE 81; TEMP 36.5; O2SAT 95
[2017-03-15 06:10] LABS: ESTIMATED AVERAGE GLUCOSE 192 mg/dl; HA1C FLAG Normal (Normal)
[2017-03-15] MEDS: ATORVASTATIN 20 MG TAB PO SCH (07:28)
[2017-03-15] MEDS: DULOXETINE (CYMBALTA) 30 MG CAP PO SCH (07:28)
[2017-03-15] MEDS: CETIRIZINE HCL 10 MG TAB PO SCH (07:28)
[2017-03-15] MEDS: PANTOprazole SOD 40 MG TAB PO SCH (07:28)
[2017-03-15] MEDS: POLYETHYLENE (MIRALAX) 17 GM PACK PO SCH (07:28)
[2017-03-15] MEDS: LOSARTAN POTASSIUM 25 MG TAB PO SCH (07:29)
[2017-03-15] MEDS: CITALOPRAM 20 MG TAB PO SCH (07:29)
[2017-03-15] MEDS: DOCUSATE SODIUM 100 MG CAP PO SCH (07:29)
[2017-03-15] MEDS: INSULIN ASPART 100 UNITS/ML 3 ML PEN SC SCH (07:31)
--- NOTE | 2017-03-15 08:11 | Discharge Instructions ---
Discharge Instructions Date of Service March 15, 2017. 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 Current Hospital Diet Patient's current hospital diet: Diabetes Type 2 Diet Discharge Diet Recommended Diet: Regular Diet Procedures Procedures Performed: L5-S1 Posterior Lumbar Interbody Fusion Pending Studies Studies pending at discharge: no Laboratory Results Hemoglobin A1c Test 03/14/17 06:25 Range/Units Estimated Average Glucose 192 mg/dl Hemoglobin A1c 8.3 H 4.5-5.6 % Medical Emergencies . Who to Call and When: Medical Emergencies: If at any time you feel your situation is an emergency, please call 911 immediately. . Non-Emergent Contact Non-Emergency issues call your: Surgeon Call Non-Emergent contact if: your pain is concerning you, you have any medication questions . "Provider Documentation" section prepared by Ambrose Mays. . VTE Core Measure Inpt VTE Proph given/why not?: Treatment not indicated
--- NOTE | 2017-03-15 08:33 | DISCHARGE SUMMARY ---
He is improved. Stable. Pain controlled. No shortness of breath, chest pain, no confusion. 36.5 temperature, blood pressure controlled. Hemoglobin greater than 10. ASSESSMENT: Status post reconstructive spine surgery. DISPOSITION: Will get him discharged home later today. He has instructions, precautions. He has a followup appointment. We have gone over everything with the patient. He is squared away for discharge today. Follow up in about 10 days.
[2017-03-15 10:19] VITALS: BP 123/68; PULSE 81; TEMP 36.5; O2SAT 95
[2017-03-15 12:23] VITALS: Ht 172.7 cm; Wt 110.7 kg
[2017-03-15] MEDS ORDERED: INSULIN GLARGINE SOLOSTAR 100 UNITS/ML 3 ML PEN SC SCH (21:00)
== END 2017-03-15 10:55 | disposition home or self-care (01) | DRG 460 ==
LOC: ENRESERVTM → ENRESERVDT → C.ACU 05:28 → C.3E 10:21 → CANBEDREQ 12:10
PROVIDERS: ADMIT Orthopaedic Surgery Orthopaedic Surgery of the Spine; ATTEND Orthopaedic Surgery Orthopaedic Surgery of the Spine
PROC: 0SG30A1 (ICD-10-PCS; principal; 2017-03-13 07:30)
DX: M51.27 Other intervertebral disc displacement, lumbosacral region (principal); E66.9 Obesity, unspecified; Z68.37 Body mass index [BMI] 37.0-37.9, adult; E11.9 Type 2 diabetes mellitus without complications; K21.9 Gastro-esophageal reflux disease without esophagitis; J45.909 Unspecified asthma, uncomplicated; G47.30 Sleep apnea, unspecified; E03.9 Hypothyroidism, unspecified; F32.9 Major depressive disorder, single episode, unspecified; Z79.84 Long term (current) use of oral hypoglycemic drugs; Z79.899 Other long term (current) drug therapy